=== PATIENT | female | born 1960 | race Native Hawaiian/Other Pacific Islander ===

== ENCOUNTER 2018-03-17 08:03 | Outpatient (CLI) | payer BC ==
[2018-03-17 08:18] LABS: PLATELET COUNT 333 K/uL (152-353)
[2018-03-17 09:12] LABS: POTASSIUM 4.6 mmol/L (3.6-5.2)
== END 2018-03-17 23:27 | disposition home or self-care (01) ==
LOC: LABW 08:03
PROVIDERS: Physician Assistant
DX: Z00.00 Encounter for general adult medical examination without abnormal findings (principal)
CPT/HCPCS: 36415; 80053; 80061; 82306; 83036; 84439; 84443; 85027

== ENCOUNTER 2018-04-16 08:51 | Outpatient (CLI) | payer BC | END 2018-04-16 20:32 | disposition home or self-care (01) | LOC: MAMMO 08:51 | DX: Z12.31 Encounter for screening mammogram for malignant neoplasm of breast (principal) ==

== ENCOUNTER 2018-08-11 11:24 | Outpatient (CLI) | payer BC ==
[2018-08-11 11:47] LABS: PLATELET COUNT 321 K/uL (152-353)
== END 2018-08-11 19:12 | disposition home or self-care (01) ==
LOC: LABW 11:24
PROVIDERS: Physician Assistant
DX: R06.02 Shortness of breath (principal)
CPT/HCPCS: 36415; 83540; 83550; 85027

== ENCOUNTER 2018-11-25 11:42 | Outpatient (CLI) | payer BC | END 2018-11-25 19:12 | disposition home or self-care (01) | LOC: RAD 11:42 | DX: M25.561 Pain in right knee (principal); M54.5 Low back pain ==

== ENCOUNTER 2019-03-17 18:00 | Outpatient (CLI) | payer BC | END 2019-03-17 21:38 | disposition home or self-care (01) | LOC: LAB 18:00 | DX: N39.0 Urinary tract infection, site not specified (principal) | CPT/HCPCS: 87077; 87086; 87088; 87186 ==

== ENCOUNTER 2019-09-08 10:36 | Outpatient (CLI) | payer BC | END 2019-09-08 19:22 | disposition home or self-care (01) | LOC: MAMMO 10:36 | DX: Z12.31 Encounter for screening mammogram for malignant neoplasm of breast (principal); Z13.820 Encounter for screening for osteoporosis ==

== ENCOUNTER 2020-09-26 08:23 | Outpatient (CLI) | payer BC | END 2020-09-26 20:41 | disposition home or self-care (01) | LOC: MAMMO 08:23 | PROVIDERS: ATTEND Internal Medicine | DX: Z12.31 Encounter for screening mammogram for malignant neoplasm of breast (principal) ==

== ENCOUNTER 2020-11-06 08:47 | Outpatient (CLI) | payer BC | END 2020-11-06 19:24 | disposition home or self-care (01) | LOC: RESP 08:47 | PROVIDERS: ATTEND Specialist | DX: R94.31 Abnormal electrocardiogram [ECG] [EKG] (principal); R07.89 Other chest pain ==

== ENCOUNTER 2020-11-30 08:28 | Outpatient (CLI) | payer BC ==
[2020-11-30 08:48] LABS: PLATELET COUNT 281 K/uL (152-353)
[2020-11-30 09:31] LABS: POTASSIUM 4.5 mmol/L (3.6-5.2)
== END 2020-11-30 21:42 | disposition home or self-care (01) ==
LOC: LABW 08:28
PROVIDERS: ATTEND Specialist
DX: I20.0 Unstable angina (principal); R94.39 Abnormal result of other cardiovascular function study
CPT/HCPCS: 36415; 80053; 85027